=== PATIENT | female | born 1965 | race Caucasian/White ===

== ENCOUNTER 2017-04-11 16:41 | Emergency (ER) | payer OTHER ==
[~2017-04-11] VITALS: Ht 160 cm; Wt 82.0 kg
[2017-04-11] MEDS ORDERED: IBUPROFEN 600MG TABLET PO STA (16:59)
[2017-04-11 17:16] LABS: BASOPHILS % 0.6 % (0.0-2.0); EOSINOPHILS % 2.5 % (0.0-5.0); HEMATOCRIT. 40.3 % (36.0-48.0); HEMOGLOBIN. 13.7 g/dL (12.0-16.0); LYMPHOCYTES % 22.6 % (20.0-50.0); MEAN CORPUSCULAR HEMOGLOBIN 30.1 pg (28.0-32.0); MEAN CORPUSCULAR VOLUME 88.9 fL (81.0-99.0); MEAN PLATELET VOLUME 9.2 fl (7.4-10.4); MONOCYTES % 7.9 % (2.0-8.0); NEUTROPHILS % 66.4 % (40.0-76.0); PLATELET 185 x1000/uL (130-400); RED BLOOD CELL COUNT 4.54 mill/uL (4.2-5.4)
[2017-04-11 17:22] LABS: PROTHROMBIN TIME 10.5 sec
[2017-04-11 17:25] LABS: CARBON DIOXIDE 27 mEq/L (21-32); CHLORIDE 105 mEq/L (98-107)
[2017-04-11 17:31] LABS: TROPONIN I < 0.02 ng/mL (0.00-0.04)
[2017-04-11 22:24] VITALS: BP 127/96
== END 2017-04-11 22:25 | disposition home or self-care (01) ==
LOC: ER 17:12
DX: R07.9 Chest pain, unspecified (principal); Z90.5 Acquired absence of kidney
CPT/HCPCS: 36415; 71010; 80053; 84484; 85025; 85610; 93005; 99285; Z7610